=== PATIENT | female | born 1970 | race Hispanic/Latino ===

== ENCOUNTER → 2023-10-06 09:51 | Outpatient (REF) | payer OTHER, SELFPAY | LOC: WDC 09:51 | PROVIDERS: ATTENDING PHYSICIAN Obstetrics & Gynecology; FAMILY PHYSICIAN Family Medicine | DX: Z12.31 Encounter for screening mammogram for malignant neoplasm of breast (principal); N92.4 Excessive bleeding in the premenopausal period | CPT/HCPCS: 76830; 76856; 77063; 77067 ==

== ENCOUNTER → 2025-03-03 11:09 | Outpatient (REF) | payer OTHER, SELFPAY | LOC: WDC 11:09 | PROVIDERS: ATTENDING PHYSICIAN Obstetrics & Gynecology; FAMILY PHYSICIAN Nurse Practitioner Family | DX: Z12.31 Encounter for screening mammogram for malignant neoplasm of breast (principal) | CPT/HCPCS: 77063; 77067 ==

== ENCOUNTER → 2025-08-01 09:00 | Outpatient (REF) | payer OTHER, SELFPAY | LOC: WDC 09:00 | PROVIDERS: ATTENDING PHYSICIAN Obstetrics & Gynecology; FAMILY PHYSICIAN Nurse Practitioner Family | DX: R92.30 Dense breasts, unspecified (principal) | CPT/HCPCS: 76641 ==